=== PATIENT | male | born 1980 | race Caucasian/White ===

== ENCOUNTER → 2023-09-30 | Outpatient (REF) | payer BC, SELFPAY | LOC: DHSLP | PROVIDERS: ATTENDING PHYSICIAN Student in an Organized Health Care Education/Training Program; FAMILY PHYSICIAN Family Medicine | DX: G47.33 Obstructive sleep apnea (adult) (pediatric) (principal) | CPT/HCPCS: 95810 ==

== ENCOUNTER → 2023-10-08 12:51 | Outpatient (REF) | payer BC, SELFPAY | LOC: RCS 12:51 | PROVIDERS: ATTENDING PHYSICIAN Internal Medicine Cardiovascular Disease; FAMILY PHYSICIAN Family Medicine | DX: R07.2 Precordial pain (principal); I10 Essential (primary) hypertension | CPT/HCPCS: 93306; Q9950 ==

== ENCOUNTER → 2023-10-20 15:08 | Outpatient (REF) | payer BC, SELFPAY | LOC: RCS 15:08 | PROVIDERS: ATTENDING PHYSICIAN Internal Medicine Cardiovascular Disease; FAMILY PHYSICIAN Family Medicine | DX: R07.2 Precordial pain (principal) | CPT/HCPCS: 93017 ==

== ENCOUNTER → 2023-11-03 09:31 | Outpatient (REF) | payer BC, SELFPAY | LOC: WDC 09:31 | PROVIDERS: ATTENDING PHYSICIAN Nurse Practitioner | DX: N62 Hypertrophy of breast (principal) | CPT/HCPCS: 76642; 77062; 77066 ==

== ENCOUNTER → 2023-11-26 15:51 | Outpatient (REF) | payer BC, SELFPAY | LOC: RAD 15:51 | PROVIDERS: ATTENDING PHYSICIAN Physician Assistant Medical | DX: R05.1 Acute cough (principal); R06.2 Wheezing | CPT/HCPCS: 71046 ==

== ENCOUNTER → 2024-01-28 09:17 | Outpatient (REF) | payer BC, SELFPAY | LOC: RAD 09:17 | PROVIDERS: ATTENDING PHYSICIAN Physician Assistant; FAMILY PHYSICIAN Family Medicine | DX: R10.11 Right upper quadrant pain (principal); R10.12 Left upper quadrant pain | CPT/HCPCS: 76700 ==

== ENCOUNTER 2024-11-09 10:08 | Emergency (ER) | payer SELFPAY ==
[2024-11-09 10:10] VITALS: BP 159/97
--- NOTE | 2024-11-09 10:39 | ED.GENMED ---
History of Present Illness
General
Chief Complaint: Skin Surface Trauma
Source: patient
Time Seen by Provider: 11/09/24 10:25
History of Present Illness
History of Present Illness:
43-year-old male with past medical history of asthma, hypertension and GERD presenting to the emergency department for evaluation of he cut his left thumb with a table saw while at work. No other injuries were sustained. Patient unsure of his last
tetanus. He is right-hand dominant.
Past History
Past History
ED Past Medical History: Asthma, GERD and HTN
ED Past Surgical History: None
Social History
Tobacco: Non-smoker
Alcohol: None
Drug: None
Personal: Single
Living: with family
Review of Systems
Review of Systems
All Other Systems: ROS reviewed and negative except as documented in HPI and ROS
Phy Exam
Physical Exam
Physical Exam:
AAO times three, appears to be in considerable pain
Extrem: hand/wrist/fingers held in normal resting position, there is jagged 1 to 1-1/2 cm laceration along the palmar surface of the left thumb extending from the tip of the thumb down past the IP joint and into the mid proximal phalanx.
Flexor Tendons-Full active/passive ROM, nl flexion of all superficialis/profundus tendons against resistance
Extensor Tendons-Full active/passive ROM, and nl extension of all fingers against resistance
No FB seen on exam (s/p anesthesia)
Diminished light touch along the distalmost lateral aspect of the thumb
Pt denies sensation/concern for fracture, foreign body, excessive debris, numbness/tingling of fingers, weakness of fingers, or difficulty in moving any joint.
Scores
Heart Failure Risk
Heart Failure Risk Score: Not Applicable
Heart Score for Chest Pain Patients
STEMI patient?: Not applicable
Withdrawal Assessment of Alcohol
Withdrawal Assessment Completed?: Not applicable
Course
Orders/Labs/Results
Orders:
Orders
11/09/24 10:25
CR Hand - Left Min 3 Views Urgent
Comment:
Reason For Exam: left thumb lac, tablesaw
11/09/24 10:38
Ibuprofen [Motrin] 600 mg PO NOW STA
Oxycodone/Acetaminophen [Percocet 5/325] 1 tablet PO NOW STA
Tetanus/Diphth/Acelpertussis [Adacel] 0.5 ml IM .ONCE ONE
Vital Signs
Initial and Last Documented VS:
Initial Vital Signs
Temp Pulse Resp BP Pulse Ox
98.6 F 99 20 159/97 100
11/09/24 10:10 11/09/24 10:10 11/09/24 10:10 11/09/24 10:10 11/09/24 10:10
Last Documented Vital Signs
Temp Pulse Resp BP Pulse Ox
98.6 F 99 20 159/97 100
11/09/24 10:10 11/09/24 10:10 11/09/24 10:10 11/09/24 10:10 11/09/24 10:10
Procedures
Laceration Closure
Left Thumb:
Status of Wound: clean
Size of Wound in cm: 1.5
Description of Wound Edges: surrounded by abrasion and macerated
Preparation: cleaned with saline
Anesthesia: 1% Lidocaine and Digital-Regional
Revision/Debridement: routine- no revision
Skin Closure Material: 5-0 prolene
Number of sutures: 8
Additional information:
Laceration mosly approximated. There is a portion at the distal aspect that was unable to be approximated but bleeding controlled and dressing applied
MDM/Problems Addressed
Differential Diagnosis Includes:
Partial-thickness laceration, fracture, tendon/nerve injury
MDM/Problems Addressed:
43-year-old male presenting to the ER for evaluation following injury to the left thumb while using a table saw earlier this morning. Will update patient's tetanus. Will treat pain with Percocet and Motrin. X-ray ordered to evaluate for any
fracture. Will require digital block, washout. I do have some degree of concern for nerve related injury and may need close follow-up with hand due to patient working with his hands for living and it is his thumb that got injured.
*Radiology
Radiology exam reviewed: preliminary read by ED provider (no fx)
*Pulse Oximetry
Patient hypoxic: no
*Critical Care Note
Total Time (30-74mins, 75-104mins- exclusive of procedures): Not Applicable
Patient Management
Escalation/DeEscalation of care consider admission/obs:
Wound repaired as above. Given unable to fully approximate portion, I did recommend patient follow up closely with hand surgeon. Considered abx however patient currently on amoxicillin. Do not want to cause any potential abx associated complication.
Adivsed on wound care and follow up. Aware of return precautions
ED Attending Note
-
Portions of this chart may have been created with voice recognition software.� Occasional wrong word or��sound alike� substitutions may have occurred due to the inherent limitations of voice recognition software.
Discharge Plan
Departure
Patient Disposition: Home (Routine Discharge)
Date of Disposition: 11/09/24
Time of Disposition: 12:02
Patient with high blood pressure during this ER visit?: Yes
Discharge Problem:
Laceration of left thumb
Instructions: Laceration Repair With Stitches (DC)
Prescriptions:
No Action
bupropion HCl [Wellbutrin SR] 150 MG tablet sustained-release 12 hr
150 mg PO DAILY
metoprolol succinate [Toprol XL] 50 MG tablet extended release 24 hr
50 mg PO DAILY
ranitidine HCl [Zantac] 150 MG tablet
150 mg PO DAILY
montelukast 10 MG tablet
10 mg PO HS
fluticasone propionate 1 SPRAY spray,suspension
1 spray intranasal DAILY
fexofenadine-pseudoephedrine [Melyssa-D 24 Hour] 1 EACH tablet extended release 24 hr
1 tab PO DAILY
oxycodone-acetaminophen 5 MG/325 MG tablet
1 tab PO Q6HPRN PRN (Reason: pain) Qty: 14 0RF
omeprazole 20 MG capsule,delayed release(DR/EC)
20 mg PO DAILY Qty: 30 0RF
Referrals:
Jessy Miller CRNP [Family Provider] -
Catarino Miramontes MD [Active] - (Hand Surgeon - Call for appointment)
Interventions
Interventions:
*Risk Screen - Suicide Last Done: 11/09/24 12:11
*General Assessment Last Done: 11/09/24 12:11
*Nursing Disposition Last Done: 11/09/24 12:14
ED-Skin Assessment Last Done: 11/09/24 10:53
Discharge Date and Time
Discharge Date/Time: 11/09/24 12:15
Print Language: SURINAMESE
[2024-11-09] MEDS: PERCOCET 5/325 1 TABLET PO (10:48)
[2024-11-09] MEDS: MOTRIN 600 MG PO (10:49)
[2024-11-09 10:53] VITALS: BMI 42.3
[2024-11-09] MEDS: ADACEL 0.5 ML IM (11:29)
== END 2024-11-09 12:15 | disposition home or self-care (01) ==
LOC: EMR 10:08
PROVIDERS: EMERGENCY PHYSICIAN Emergency Medicine; FAMILY PHYSICIAN Nurse Practitioner
DX: S61.012A Laceration without foreign body of left thumb without damage to nail, initial encounter (principal); W31.2XXA Contact with powered woodworking and forming machines, initial encounter; I10 Essential (primary) hypertension; Z23 Encounter for immunization; J45.909 Unspecified asthma, uncomplicated
CPT/HCPCS: 64450; 99284; 12001; 90471; 73130; 90715